=== PATIENT | female | born 1995 | race Hispanic/Latino ===

== ENCOUNTER 2022-05-05 17:03 | Day surgery (SDC) | payer BC ==
[2022-05-05] MEDS ORDERED: hydrALAZINE 20 MG/ML VIAL SLOW IVP PRN (19:04)
== END 2022-05-05 19:55 | disposition home or self-care (01) ==
LOC: CSHLD/OP 17:03
PROVIDERS: ATTEND Obstetrics & Gynecology
DX: O47.1 False labor at or after 37 completed weeks of gestation (principal); Z3A.37 37 weeks gestation of pregnancy; O99.283 Endocrine, nutritional and metabolic diseases complicating pregnancy, third trimester; E03.9 Hypothyroidism, unspecified; O99.343 Other mental disorders complicating pregnancy, third trimester; F41.9 Anxiety disorder, unspecified; Z79.899 Other long term (current) drug therapy; Z98.818 Other dental procedure status
CPT/HCPCS: 99283

== ENCOUNTER 2022-05-11 23:14 | Day surgery (SDC) | payer BC ==
[2022-05-11 23:40] VITALS: BMI 28.1
[2022-05-12] MEDS ORDERED: hydrALAZINE 20 MG/ML VIAL SLOW IVP PRN (00:05)
[2022-05-12 00:28] LABS: Fetal Membranes Rupture No Membranes Rupture (No Rupture)
== END 2022-05-12 02:24 | disposition home or self-care (01) ==
LOC: CSHLD/OP 23:14
PROVIDERS: ATTEND Student in an Organized Health Care Education/Training Program
DX: O42.92 Full-term premature rupture of membranes, unspecified as to length of time between rupture and onset of labor (principal); O26.853 Spotting complicating pregnancy, third trimester; O99.343 Other mental disorders complicating pregnancy, third trimester; F41.9 Anxiety disorder, unspecified; Z3A.38 38 weeks gestation of pregnancy; Z79.899 Other long term (current) drug therapy
CPT/HCPCS: 76815; 84112; 99285

== ENCOUNTER 2022-05-12 06:10 | Inpatient (IN) | payer BC ==
[2022-05-12 07:15] VITALS: BMI 28.5
[2022-05-12] MEDS: Lactated Ringer's 1,000 ML IV SCH ×2 (07:30→17:10)
[2022-05-12] MEDS ORDERED: Lidocaine 1% (PF) 30 ML VIAL SC PRN (08:15)
[2022-05-12] MEDS ORDERED: Butorphanol Tartrate 1 MG/ML VIAL SLOW IVP PRN (08:15)
[2022-05-12] MEDS ORDERED: Ondansetron PF 4 MG/2 ML Vial IVP PRN ×2 (08:15→17:28)
[2022-05-12] MEDS ORDERED: Ibuprofen 800 MG TAB PO PRN (08:15)
[2022-05-12] MEDS ORDERED: hydrALAZINE 20 MG/ML VIAL SLOW IVP PRN ×2 (08:15→17:28)
[2022-05-12] MEDS ORDERED: NS w/ Oxytocin 30 units 500 ML IV SCH ×2 (08:15→17:28)
[2022-05-12] MEDS ORDERED: NS w/ Oxytocin 30 units 500 ML IVPB SCH (08:15)
[2022-05-12] MEDS ORDERED: Carboprost 250 MCG/ML AMP IM PRN (08:15)
[2022-05-12] MEDS ORDERED: Misoprostol 200 MCG TAB RC PRN (08:15)
[2022-05-12] MEDS ORDERED: Diphenoxylate HCl/Atropine Tablet PO PRN (08:15)
[2022-05-12] MEDS ORDERED: Methylergonovine 0.2 MG/ML VIAL IM PRN (08:15)
[2022-05-12] MEDS ORDERED: Promethazine HCl 25 MG/ML VIAL IM PRN (08:15)
[2022-05-12 08:21] LABS: Hemoglobin 12.2 g/dL (12.0-15.5); Mean Corpuscular HGB CONC 34.3 g/dL (32.0-36.0); Mean Corpuscular Hemoglobin 30.7 pg (27.0-33.0); Mean Corpuscular Volume 89.4 fl (81.6-98.3); Mean Platelet Volume 11.5 fl (7.4-10.4); Platelet Count 222 10x3/uL (150-450); RBC Distribution Width 11.7 % (11.5-14.5); Red Blood Cell (RBC) Count 3.98 10x6/uL (3.90-5.03); White Blood Cell (WBC) Count 13.8 10x3/uL (3.5-10.5)
[2022-05-12 08:55] LABS: Hep B Surf Ag Non-Reactive S/CO (NonReactive)
[2022-05-12 09:00] LABS: HBSAg Index 0.24 S/CO (0-0.99)
[2022-05-12 10:45] LABS: Syphilis Antibody Nonreactive (Nonreactive); Syphilis Antibody Index 0.15 S/CO (<1.00 Non-Reactive)
[2022-05-12 14:40] LABS: SARS-CoV-2 NAA Rapid Test Not Detected (NotDetected)
[2022-05-12] MEDS ORDERED: Lanolin Ointment 7 GM TUBE TOP PRN (17:28)
[2022-05-12] MEDS ORDERED: Milk Of Magnesia 30 ML UDCUP PO PRN (17:28)
[2022-05-12] MEDS ORDERED: Bisacodyl 10 MG SUPP PR PRN (17:28)
[2022-05-12] MEDS ORDERED: Misoprostol 200 MCG TAB VAG PRN (17:28)
[2022-05-12] MEDS ORDERED: Boostrix 0.5 ML (Tdap) VIAL IM ONE (17:28)
[2022-05-12] MEDS ORDERED: Benzocaine-Menthol 82.5 ML CAN TOP PRN (17:28)
[2022-05-12] MEDS ORDERED: HYDROcodone/Acetaminophen 5/325 mg Tablet PO PRN ×2 (17:28)
[2022-05-12] MEDS: Docusate 100 MG CAP PO SCH (20:39)
[2022-05-12] MEDS ORDERED: Ibuprofen 800 MG TAB PO SCH (22:00)
[2022-05-13] MEDS ORDERED: Ferrous Sulfate 325 MG TAB PO SCH (08:00)
[2022-05-13] MEDS: Docusate 100 MG CAP PO SCH (08:34)
[2022-05-13] MEDS ORDERED: Prenatal Vitamin 1 TAB PO SCH (09:00)
[2022-05-13 12:03] VITALS: BP 108/65; TEMP 97.8
== END 2022-05-13 14:05 | disposition home or self-care (01) | DRG 807 ==
LOC: CSHLD/OP 06:10 → CSHLD 09:02 → CSHPED 15:15
PROVIDERS: ADMIT Student in an Organized Health Care Education/Training Program; ATTEND Student in an Organized Health Care Education/Training Program
PROC: 10E0XZZ Delivery of Products of Conception, External Approach (ICD-10-PCS; principal; 2022-05-12)
DX: O42.02 Full-term premature rupture of membranes, onset of labor within 24 hours of rupture (principal); Z37.0 Single live birth; Z3A.38 38 weeks gestation of pregnancy; Z20.822 Contact with and (suspected) exposure to COVID-19
CPT/HCPCS: 76815; 84112; 85027; 86780; 86850; 86900; 86901; 87340; 99285; J0595; J2590; U0002

== ENCOUNTER 2024-03-21 10:48 | Inpatient (IN) | payer BC ==
[2024-03-21 11:05] VITALS: BMI 27.8
[2024-03-21] MEDS ORDERED: hydrALAZINE 20 MG/ML VIAL SLOW IVP PRN ×2 (11:23→18:06)
[2024-03-21] MEDS ORDERED: fentaNYL 50 mcg/mL 1 mL Vial SLOW IVP PRN (11:23)
[2024-03-21] MEDS ORDERED: Misoprostol 200 MCG TAB PR PRN (11:23)
[2024-03-21] MEDS ORDERED: Lactated Ringer's 1,000 ML IV PRN (11:23)
[2024-03-21] MEDS ORDERED: Ondansetron PF 4 MG/2 ML Vial IVP PRN (11:23)
[2024-03-21] MEDS ORDERED: Promethazine HCl 25 MG/ML VIAL IM PRN (11:23)
[2024-03-21] MEDS ORDERED: Methylergonovine 0.2 MG/ML VIAL IM PRN (11:23)
[2024-03-21] MEDS ORDERED: Lidocaine 1% (PF) 30 ML VIAL SC PRN (11:23)
[2024-03-21] MEDS ORDERED: Oxytocin 30 units/NS 500 ML 500 ML IV SCH ×2 (11:30→18:06)
[2024-03-21 11:33] LABS: Hematocrit 32.4 % (34.9-44.5); Hemoglobin 11.8 g/dL (12.0-15.5); Mean Corpuscular HGB CONC 36.4 g/dL (32.0-36.0); Mean Corpuscular Hemoglobin 33.1 pg (27.0-33.0); Mean Corpuscular Volume 90.8 fL (81.6-98.3); Mean Platelet Volume 10.1 fL (7.4-10.4); Platelet Count 231 10x3/uL (150-450); Red Blood Cell (RBC) Count 3.57 10x6/uL (3.90-5.03)
[2024-03-21 12:19] LABS: HBsAg Index 0.38 S/CO (0-0.99); Hep B Surf Ag - L&D Non-Reactive S/CO (NonReactive); Syphilis Antibody Nonreactive (Nonreactive); Syphilis Antibody Index 0.13 S/CO (<1.00 Non-Reactive)
[2024-03-21] MEDS ORDERED: Misoprostol 200 MCG TAB VAG PRN (18:06)
[2024-03-21] MEDS ORDERED: Milk Of Magnesia 30 ML UDCUP PO PRN (18:06)
[2024-03-21] MEDS ORDERED: Boostrix 0.5 ML (Tdap) VIAL (>/=7 yrs of age) IM ONE (18:06)
[2024-03-21] MEDS ORDERED: Benzocaine-Menthol 82.5 ML CAN TOP PRN (18:06)
[2024-03-21] MEDS ORDERED: Bisacodyl 10 MG SUPP PR PRN (18:06)
[2024-03-21] MEDS ORDERED: HYDROcodone/Acetaminophen 5/325 mg Tablet PO PRN ×2 (18:06)
[2024-03-21] MEDS: Docusate 100 MG CAP PO SCH (21:40)
[2024-03-21] MEDS: Ibuprofen 800 MG TAB PO SCH (21:40)
[2024-03-22] MEDS: Ferrous Sulfate 325 MG TAB PO SCH (07:37)
[2024-03-22 07:59] VITALS: TEMP 97.5
[2024-03-22 11:33] VITALS: BP 110/57
== END 2024-03-22 17:40 | disposition home or self-care (01) | DRG 807 ==
LOC: CSHLD/OP 10:48 → CSHLD 11:20 → CSHPP 17:22
PROVIDERS: ADMIT Obstetrics & Gynecology; ATTEND Obstetrics & Gynecology
PROC: 10E0XZZ Delivery of Products of Conception, External Approach (ICD-10-PCS; principal; 2024-03-21)
DX: O36.5930 Maternal care for other known or suspected poor fetal growth, third trimester, not applicable or unspecified (principal); Z37.0 Single live birth; Z3A.38 38 weeks gestation of pregnancy
CPT/HCPCS: 85027; 86780; 86850; 86900; 86901; 87340